=== PATIENT | female | born 1960 | race Caucasian/White ===

== ENCOUNTER 2018-03-31 14:36 | Emergency (ER) | payer OTHER ==
[~2018-03-31] VITALS: Ht 172.7 cm; Wt 108.9 kg
[~2018-03-31 14:36] MED LIST: CIPRO 500MG TA500 MG PO; FLEXERIL10 MG PO; MEDROL DOSEPAK1 PAC PO; MOTRIN800 MG PO; PERCOCET 325 MG1 TA2 PO; PYRIDIUM200 MG PO
[2018-03-31 14:52] VITALS: BP 120/71
--- NOTE | 2018-03-31 16:11 | RADIOLOGY REPORT ---
EXAMINATION: XR ANKLE, LEFT CLINICAL INFORMATION: Pain and swelling over the lateral malleolus. COMPARISON: None TECHNIQUE: 3 views of the left ankle. FINDINGS: There is soft tissue swelling at lateral malleolus. There is no fracture. No dislocation. Ankle mortise is congruent. There is a plantar calcaneal spur. There is also a spur at the insertion of the Achilles tendon at the posterior calcaneus. IMPRESSION: Soft tissue swelling at lateral malleolus. No fracture or dislocation of the ankle.
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
--- NOTE | 2018-03-31 17:20 | RADIOLOGY REPORT ---
EXAMINATION: XR FOOT, LEFT CLINICAL INFORMATION: Right foot pain and swelling COMPARISON: None TECHNIQUE: Three views of the left foot. FINDINGS: Normal alignment. No fracture. No radiopaque foreign body. Prominent heel spur. 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 IMPRESSION: Mild degenerative changes with no acute abnormality.
[2018-03-31] MEDS ORDERED: PERCOCET 5-3251 EACH PO (17:42)
== END 2018-03-31 17:49 ==
LOC: ERH 14:36
DX: S93.402A Sprain of unspecified ligament of left ankle, initial encounter (principal); W01.0XXA Fall on same level from slipping, tripping and stumbling without subsequent striking against object, initial encounter; Y92.014 Private driveway to single-family (private) house as the place of occurrence of the external cause; Y93.89 Activity, other specified
CPT/HCPCS: 73610-LT; 73630-LT